=== PATIENT | male | born 1965 | race Caucasian/White ===

== ENCOUNTER 2018-08-07 13:25 | Outpatient (CLI) | payer BC ==
[2018-08-07 13:42] LABS: BILIRUBIN,URINE NEGATIVE (NEGATIVE); GLUCOSE, URINE (UA) NEGATIVE (NEGATIVE); KETONES,URINE (UA) NEGATIVE (NEGATIVE); LEUKOCYTE ESTERASE, URINE NEGATIVE (NEGATIVE); NITRITE,URINE NEGATIVE (NEGATIVE); OCCULT BLOOD,URINE NEGATIVE (NEGATIVE); PH,URINE 7.5 PH (5.0-7.5); PROTEIN,URINE NEGATIVE (NEGATIVE); UROBILINOGEN,URINE 0.2 (NORMAL) E.U./dL (NORMAL)
[2018-08-07 13:47] LABS: CLARITY,URINE CLEAR (CLEAR)
== END 2018-08-07 13:26 | disposition home or self-care (01) ==
LOC: LAB 13:25
PROVIDERS: ATTEND Urology
DX: R39.9 Unspecified symptoms and signs involving the genitourinary system (principal)
CPT/HCPCS: 81001; 81003; 87086

== ENCOUNTER 2020-04-09 06:01 | Emergency (ER) | payer BC ==
[2020-04-09 06:26] LABS: BILIRUBIN,URINE NEGATIVE (NEGATIVE); GLUCOSE, URINE (UA) NEGATIVE (NEGATIVE); KETONES,URINE (UA) NEGATIVE (NEGATIVE); LEUKOCYTE ESTERASE, URINE NEGATIVE (NEGATIVE); NITRITE,URINE NEGATIVE (NEGATIVE); OCCULT BLOOD,URINE MODERATE (NEGATIVE); PROTEIN,URINE NEGATIVE (NEGATIVE); UROBILINOGEN,URINE 0.2 (NORMAL) E.U./dL (NORMAL)
[2020-04-09 06:30] LABS: CLARITY,URINE CLEAR (CLEAR)
[2020-04-09] MEDS ORDERED: LACTATED RINGERS 1,000 ML IV STA (06:35)
[2020-04-09 06:45] LABS: BACTERIA,URINE None Seen /HPF (None Seen); RBC,URINE 0-5 /HPF (0-5); SQUAMOUS EPITHELIAL CELL,UR NONE SEEN (<= Few); WBC,URINE 0-3 /HPF (0-3)
[2020-04-09 06:49] LABS: ALBUMIN 3.9 g/dL (3.2-5.5); ALBUMIN/GLOBULIN RATIO 1.4 (1.0-2.2); BILIRUBIN,TOTAL 1.2 mg/dL (0.2-1.0); CALCIUM 9.2 mg/dL (8.5-10.3); CREATININE 1.3 mg/dL (0.6-1.2); POTASSIUM 4.1 mmol/L (3.5-5.0); TOTAL PROTEIN 6.6 g/dL (6.7-8.2)
[2020-04-09 06:56] LABS: BASOPHILS # (AUTO) 0.1 10^3/uL (0.0-0.1); BASOPHILS % (AUTO) 0.6 %; EOSINOPHILS # (AUTO) 0.1 10^3/uL (0.0-0.7); HCT - HEMATOCRIT 44.9 % (42.0-52.0); HGB - HEMOGLOBIN 15.1 g/dL (14.0-18.0); LYMPHOCYTES # (AUTO) 1.2 10^3/uL (1.5-3.5); LYMPHOCYTES % (AUTO) 15.3 %; MEAN CORPUSCULAR HEMOGLOBIN 31.3 pg (27.0-31.0); MEAN CORPUSCULAR HGB CONC 33.6 g/dL (32.0-36.0); MEAN PLATELET VOLUME 10.3 fL (7.4-11.4); MONOCYTES # (AUTO) 0.7 10^3/uL (0.0-1.0); MONOCYTES % (AUTO) 8.7 %; NEUTROPHILS # (AUTO) 5.9 10^3/uL (1.5-6.6); PLT - PLATELET COUNT 205 10^3/uL (130-450); RED BLOOD COUNT 4.83 10^6/uL (4.70-6.10); WHITE BLOOD COUNT 7.9 x10^3/uL (4.8-10.8)
[2020-04-09] MEDS ORDERED: MORPHINE 10 MG/ML VIAL IVP STA (07:02)
--- NOTE | 2020-04-09 07:06 | ED Physician Documentation ---
History of Present Illness - Stated complaint Stated Complaint: KIDNEY STONE - Chief complaint Chief Complaint: Abd Pain - History obtained from History obtained from: Patient - Additonal information Additional information: 54-year-old man with past medical history of active prostate cancer currently in treatment by urologist Dr. Darian Wynn, kidney stones status post lithotripsy in 2014 presents with left flank pain for the past couple days radiating to the left lower quadrant, intermittent sharp severe without associated symptoms. Denies fever, urinary symptoms, nausea or vomiting. Review of Systems Ten Systems: 10 systems reviewed and negative Constitutional: denies: Fever, Chills GI: reports: Abdominal Pain. denies: Nausea : denies: Dysuria Musculoskeletal: reports: Back pain PD PAST MEDICAL HISTORY - Past Medical History Past Medical History: Yes : Kidney stones, Other Derm: Other Other Past Medical History: Lipoma in mid back: Prostate CA - Past Surgical History Past Surgical History: Yes Derm: Other - Present Medications Home Medications: Ambulatory Orders Medication Instructions Recorded Confirmed No Known Home Medications 04/09/20 04/09/20 - Allergies Allergies/Adverse Reactions: Allergies Allergy/AdvReac Type Severity Reaction Status Date / Time No Known Drug Allergies Allergy Verified 04/09/20 06:08 - Social History Does the pt smoke?: No Smoking Status: Never smoker Does the pt drink ETOH?: Yes ETOH Use: Liquor Does the pt have substance abuse?: No - Immunizations Immunizations are current?: Yes - POLST Patient has POLST: No PD ED PE NORMAL - Vitals Vital signs reviewed: Yes - General General: Alert and oriented X 3, No acute distress, Well developed/nourished - HEENT HEENT: Atraumatic, PERRL, EOMI - Cardiac Cardiac: RRR - Respiratory Respiratory: No respiratory distress, Clear bilaterally - Abdomen Abdomen: Non tender, Non distended - Back Back: Other (L CVA ttp) - Derm Derm: Normal color - Extremities Extremities: No deformity - Neuro Neuro: Alert and oriented X 3 - Psych Psych: Normal mood, Normal affect Results - Vitals Vitals: Vital Signs - 24 hr 04/09/20 06:03 Temperature 36.5 C Heart Rate 71 Respiratory 16 Rate Blood Pressure 147/83 H O2 Saturation 98 Oxygen O2 Source Room air - Labs Labs: Laboratory Tests 04/09/20 04/09/20 04/09/20 06:24 06:27 06:27 WBC 7.9 RBC 4.83 Hgb 15.1 Hct 44.9 MCV 93.0 MCH 31.3 H MCHC 33.6 RDW 13.0 Plt Count 205 MPV 10.3 Neut # (Auto) 5.9 Lymph # (Auto) 1.2 L [place] # (Auto) 0.7 Eos # (Auto) 0.1 Baso # (Auto) 0.1 Absolute Nucleated RBC 0.00 Nucleated RBC % 0.0 Sodium 142 Potassium 4.1 Chloride 105 Carbon Dioxide 27 Anion Gap 10.0 BUN 13 Creatinine 1.3 H Estimated GFR (MDRD) 57 L Glucose 96 Calcium 9.2 Total Bilirubin 1.2 H AST 28 ALT 28 Alkaline Phosphatase 50 Total Protein 6.6 L Albumin 3.9 Globulin 2.7 Albumin/Globulin Ratio 1.4 Lipase 32 Urine Color YELLOW Urine Clarity CLEAR Urine pH 6.0 Ur Specific [place] 1.025 Urine Protein NEGATIVE Urine Glucose (UA) NEGATIVE Urine Ketones NEGATIVE Urine Occult Blood MODERATE H Urine Nitrite NEGATIVE Urine Bilirubin NEGATIVE Urine Urobilinogen 0.2 (NORMAL) Ur Leukocyte Esterase NEGATIVE Urine RBC 0-5 Urine WBC 0-3 Ur Squamous Epith Cells NONE SEEN Urine Bacteria None Seen Ur Microscopic Review INDICATED Urine Culture Comments NOT INDICATED PD MEDICAL DECISION MAKING - ED course ED course: 54-year-old man with history of prostate cancer and kidney stones presents with left flank pain radiating to the left lower quadrant. Will obtain CT to evaluate further. Patient endorsed to incoming daytime Dr. Dr. Tracey.
[2020-04-09] MEDS ORDERED: KETOROLAC 30 MG/ML VIAL IVP STA (07:13)
[2020-04-09] MEDS ORDERED: IOVERSOL 320 100 ML VIAL IVP ONE ×2 (07:28→13:19)
[2020-04-09 07:42] VITALS: BP 119/86
--- NOTE | 2020-04-09 08:14 | CT Report ---
PROCEDURE: Abdomen/Pelvis W INDICATIONS: L flank pain radiating to abdomen CONTRAST: IV CONTRAST: Optiray 320 ml: 100 PO CONTRAST: *NO PO CONTRAST TECHNIQUE: After the administration of intravenous contrast, 5 mm thick sections acquired from the diaphragms to the symphysis. 5 mm thick coronal and sagittal reformats were acquired. For radiation dose reducti on, the following was used: automated exposure control, adjustment of mA and/or kV according to brandie ent size. COMPARISON: None. FINDINGS: Image quality: Excellent. ABDOMEN: Lung bases: Lung bases demonstrate mild dependent atelectasis. Heart size is normal. Solid organs: Liver and spleen are normal in size and enhancement. Small hypointense structures wit hin the liver are nonspecific and may represent cysts. Gallbladder contains multiple gallstones. Colin iary system is non dilated. Pancreas enhances normally. No adrenal nodules. Kidneys demonstrate symmetric size and enhancement. There is mild left hydroureteronephrosis with pe rinephric and periureteral fat stranding. A 6 mm calculus is seen at the left ureterovesicular juncti on. No additional renal or ureteral calculus is identified. Peritoneum and bowel: Bowel loops demonstrate normal wall thickness and caliber. Normal appendix. N o free fluid or air. Nodes and vessels: No retroperitoneal or mesenteric adenopathy by size criteria. Aorta and inferior vena cava are normal in size. Miscellaneous: There is a tiny fat-containing periumbilical hernia. PELVIS: Genitourinary: Bladder wall thickness is normal. Miscellaneous: No inguinal hernias or adenopathy. Bones: No suspicious bony lesions. No vertebral body compression fractures. Mild degenerative britton ges are seen at the lumbosacral junction. IMPRESSION: 1. Left distal ureteral 6 mm calculus at the left ureterovesicular junction, with mild left hydroure teronephrosis and perinephric and periureteral fat stranding. 2. Cholelithiasis. Reviewed by: Anatoliy Carson MD on 04/09/2020 8:[address] [facility] Approved by: Anatoliy Carson MD on 04/09/2020 8:13 AM PST Station ID: [id number]
[2020-04-09] MEDS ORDERED: oxyCODONE 5 MG TABLET PO STA (08:19)
[2020-04-09] MEDS ORDERED: TAMSULOSIN 0.4 MG CAPSULE PO STA (08:19)
--- NOTE | 2020-04-09 08:22 | ED Physician Documentation ---
History of Present Illness - Stated complaint Stated Complaint: KIDNEY STONE - Chief complaint Chief Complaint: Abd Pain PD PAST MEDICAL HISTORY - Past Medical History Past Medical History: Yes : Kidney stones, Other Derm: Other Other Past Medical History: Lipoma in mid back: Prostate CA - Past Surgical History Past Surgical History: Yes Derm: Other - Present Medications Home Medications: Ambulatory Orders Medication Instructions Recorded Confirmed Ibuprofen [Motrin] 800 mg PO Q8H PRN #30 tablet 04/09/20 Ondansetron Odt [Zofran] 4 mg TL Q6H PRN #10 tablet 04/09/20 Oxycodone HCl/Acetaminophen 1 - 2 each PO Q6H PRN #14 tablet 04/09/20 [Percocet 5-325 mg Tablet] Tamsulosin [Flomax] 0.4 mg PO DAILY #14 cap 04/09/20 - Allergies Allergies/Adverse Reactions: Allergies Allergy/AdvReac Type Severity Reaction Status Date / Time No Known Drug Allergies Allergy Verified 04/09/20 06:08 - Social History Does the pt smoke?: No Smoking Status: Never smoker Does the pt drink ETOH?: Yes ETOH Use: Liquor Does the pt have substance abuse?: No - Immunizations Immunizations are current?: Yes - POLST Patient has POLST: No Results - Vitals Vitals: Vital Signs - 24 hr 04/09/20 04/09/20 06:03 07:41 Temperature 36.5 C Heart Rate 71 60 Respiratory 16 16 Rate Blood Pressure 147/83 H 119/86 H O2 Saturation 98 100 Oxygen O2 Source Room air - Labs Labs: Laboratory Tests 04/09/20 04/09/20 04/09/20 06:24 06:27 06:27 WBC 7.9 RBC 4.83 Hgb 15.1 Hct 44.9 MCV 93.0 MCH 31.3 H MCHC 33.6 RDW 13.0 Plt Count 205 MPV 10.3 Neut # (Auto) 5.9 Lymph # (Auto) 1.2 L [place] # (Auto) 0.7 Eos # (Auto) 0.1 Baso # (Auto) 0.1 Absolute Nucleated RBC 0.00 Nucleated RBC % 0.0 Sodium 142 Potassium 4.1 Chloride 105 Carbon Dioxide 27 Anion Gap 10.0 BUN 13 Creatinine 1.3 H Estimated GFR (MDRD) 57 L Glucose 96 Calcium 9.2 Total Bilirubin 1.2 H AST 28 ALT 28 Alkaline Phosphatase 50 Total Protein 6.6 L Albumin 3.9 Globulin 2.7 Albumin/Globulin Ratio 1.4 Lipase 32 Urine Color YELLOW Urine Clarity CLEAR Urine pH 6.0 Ur Specific [place] 1.025 Urine Protein NEGATIVE Urine Glucose (UA) NEGATIVE Urine Ketones NEGATIVE Urine Occult Blood MODERATE H Urine Nitrite NEGATIVE Urine Bilirubin NEGATIVE Urine Urobilinogen 0.2 (NORMAL) Ur Leukocyte Esterase NEGATIVE Urine RBC 0-5 Urine WBC 0-3 Ur Squamous Epith Cells NONE SEEN Urine Bacteria None Seen Ur Microscopic Review INDICATED Urine Culture Comments NOT INDICATED - Rads (name of study) CT abd/pelvis Radiology: Prelim report reviewed, EMP read contemporaneously, See rad report PD MEDICAL DECISION MAKING - ED course Complexity details: reviewed results, re-evaluated patient, considered differential, d/w patient ED course: Patient with a 6 mm stone at the left UVJ. Pain well controlled in the emergency department. No fevers. No evidence of infected stone. No vomiting. We will place on pain medication, Flomax for home. He will follow up with his urologist for further care. Patient counseled regarding signs and symptoms for which I believe and urgent re-evaluation would be necessary. Patient with good understanding of and agreement to plan and is comfortable going home at this time This document was made in part using voice recognition software. While efforts are made to proofread this document, sound alike and grammatical errors may occur. IMPRESSION: 1. Left distal ureteral 6 mm calculus at the left ureterovesicular junction, with mild left hydroureteronephrosis and perinephric and periureteral fat stranding. 2. Cholelithiasis. Departure - Departure Disposition: 01 Home, Self Care Clinical Impression: Ureteral calculus, left Condition: Good Instructions: ED Stone Renal W Colic Follow-Up: MIKE FLORES MD [Primary Care Provider] - Within 1 week Prescriptions: Tamsulosin [Flomax] 0.4 mg PO DAILY #14 cap Ibuprofen [Motrin] 800 mg PO Q8H PRN #30 tablet PRN Reason: PAIN &/OR FEVER Oxycodone HCl/Acetaminophen [Percocet 5-325 mg Tablet] 1 - 2 each PO Q6H PRN #14 tablet PRN Reason: pain Ondansetron Odt [Zofran] 4 mg TL Q6H PRN #10 tablet PRN Reason: Nausea / Vomiting Comments: Drink plenty of fluids. Return if you worsen. Follow-up with your doctor for further care. You do have a left-sided ureterovesicular junction stone, 6 mm. Return especially for uncontrolled pain, fevers, vomiting. Do not drink alcohol or drive while on narcotic pain medicine. Note that many narcotic pain relievers also contain tylenol/acetaminophen. Please ensure that your total dose of acetaminophen from all sources does not exceed 3 grams (3000mg) per day. You may constipated on this medication, take a stool softener such as "Colace" twice a day while you are on it. Also recommend a [id number] laxative such as senna or MiraLAX any day that you do not have a bowel movement. If you received narcotic pain medication in the emergency department, do not drive or operate machinery for the next [address] Scan results
== END 2020-04-09 08:43 | disposition home or self-care (01) ==
LOC: ED 06:01 → MERGE 06:01 → ED 08:43
DX: N13.2 Hydronephrosis with renal and ureteral calculous obstruction (principal); K80.20 Calculus of gallbladder without cholecystitis without obstruction; C61 Malignant neoplasm of prostate
CPT/HCPCS: 36415; 74177; 80053; 81001; 83690; 85025; 96361; 96374; 96375; 99284; A9270; J7120; Q9967; 81003; 87086

== ENCOUNTER 2021-03-03 14:32 | Outpatient (CLI) | payer BC ==
[2021-03-03 20:25] LABS: ALBUMIN/GLOBULIN RATIO 1.5 (1.0-2.2); ALKALINE PHOSPHATASE 56 IU/L (42-121); ALT ALANINE AMINOTRANSFERASE 29 IU/L (10-60); AST ASPARTATE AMINOTRANSFERASE 27 IU/L (10-42); BILIRUBIN,TOTAL 0.6 mg/dL (0.2-1.0); BUN - BLOOD UREA NITROGEN 13 mg/dL (6-20); CALCIUM 9.2 mg/dL (8.5-10.3); CARBON DIOXIDE - CO2 30 mmol/L (21-32); CHLORIDE 103 mmol/L (101-111); CHOLESTEROL 188 mg/dL; CREATININE 0.7 mg/dL (0.6-1.2); GFR - MDRD 116 (>89); GLUCOSE 108 mg/dL (70-100); HDL CHOLESTEROL 62 mg/dL; LDL CHOLESTEROL,CALCULATED 74 mg/dL; LDL/HDL RATIO 1.2 (<3.6); POTASSIUM 3.8 mmol/L (3.5-5.0); SODIUM 140 mmol/L (135-145); TOTAL PROTEIN 6.7 g/dL (6.7-8.2); TRIGLYCERIDES 260 mg/dL; VLDL CHOLESTEROL 52 mg/dL
== END 2021-03-03 14:33 | disposition home or self-care (01) ==
LOC: LAB.S 14:32
PROVIDERS: ATTEND Family Medicine Sports Medicine
DX: Z00.00 Encounter for general adult medical examination without abnormal findings (principal); C61 Malignant neoplasm of prostate
CPT/HCPCS: 36415; 80053; 80061; 83721; 84153

== ENCOUNTER 2022-04-25 12:39 | Outpatient (CLI) | payer BC | END 2022-04-25 12:40 | disposition home or self-care (01) | LOC: LAB.S 12:39 | PROVIDERS: ATTEND Nurse Practitioner Family | DX: M79.671 Pain in right foot (principal); R22.41 Localized swelling, mass and lump, right lower limb | CPT/HCPCS: 36415; 84550 ==

== ENCOUNTER 2022-05-02 14:37 | Outpatient (CLI) | payer BC | END 2022-05-02 14:38 | disposition home or self-care (01) | LOC: LAB.S 14:37 | PROVIDERS: ATTEND Podiatrist | DX: M25.571 Pain in right ankle and joints of right foot (principal); M25.572 Pain in left ankle and joints of left foot; M10.079 Idiopathic gout, unspecified ankle and foot | CPT/HCPCS: 36415; 81599; 85651; 86038; 86140; 86160; 86225; 86235 ==

== ENCOUNTER 2022-05-17 14:11 | Outpatient (CLI) | payer BC | END 2022-05-17 14:12 | disposition home or self-care (01) | LOC: LAB.S 14:11 | PROVIDERS: ATTEND Podiatrist | DX: M25.571 Pain in right ankle and joints of right foot (principal); M25.572 Pain in left ankle and joints of left foot; M10.071 Idiopathic gout, right ankle and foot | CPT/HCPCS: 36415; 81599; 83520; 84550; 86200; 86431 ==

== ENCOUNTER 2022-06-23 13:16 | Outpatient (CLI) | payer BC | END 2022-06-23 13:17 | disposition home or self-care (01) | LOC: LAB.S 13:16 | PROVIDERS: ATTEND Podiatrist | DX: M10.071 Idiopathic gout, right ankle and foot (principal) | CPT/HCPCS: 36415; 84550 ==

== ENCOUNTER 2022-11-08 07:35 | Outpatient (CLI) | payer BC ==
[2022-11-08 15:28] LABS: BASOPHILS # (AUTO) 0.1 10^3/uL (0.0-0.1); BASOPHILS % (AUTO) 1.3 %; EOSINOPHILS # (AUTO) 0.1 10^3/uL (0.0-0.7); EOSINOPHILS % (AUTO) 2.8 %; HCT - HEMATOCRIT 46.3 % (42.0-52.0); HGB - HEMOGLOBIN 15.7 g/dL (14.0-18.0); LYMPHOCYTES # (AUTO) 1.3 10^3/uL (1.5-3.5); LYMPHOCYTES % (AUTO) 27.7 %; MEAN CORPUSCULAR HEMOGLOBIN 31.5 pg (27.0-31.0); MEAN CORPUSCULAR HGB CONC 33.9 g/dL (32.0-36.0); MEAN CORPUSCULAR VOLUME 92.8 fL (80.0-94.0); MEAN PLATELET VOLUME 11.1 fL (7.4-11.4); MONOCYTES # (AUTO) 0.3 10^3/uL (0.0-1.0); MONOCYTES % (AUTO) 7.4 %; NEUTROPHILS # (AUTO) 2.8 10^3/uL (1.5-6.6); NEUTROPHILS % (AUTO) 60.4 %; PLT - PLATELET COUNT 201 10^3/uL (130-450); RED BLOOD COUNT 4.99 10^6/uL (4.70-6.10); RED CELL DISTRIBUTION WIDTH 13.5 % (12.0-15.0); WHITE BLOOD COUNT 4.6 x10^3/uL (4.8-10.8)
[2022-11-08 15:42] LABS: ALBUMIN 4.1 g/dL (3.2-5.5); ALBUMIN/GLOBULIN RATIO 1.7 (1.0-2.2); ALKALINE PHOSPHATASE 61 IU/L (42-121); ALT ALANINE AMINOTRANSFERASE 26 IU/L (10-60); AST ASPARTATE AMINOTRANSFERASE 28 IU/L (10-42); BILIRUBIN,TOTAL 0.9 mg/dL (0.2-1.0); BUN - BLOOD UREA NITROGEN 10 mg/dL (6-20); CALCIUM 9.5 mg/dL (8.5-10.3); CARBON DIOXIDE - CO2 31 mmol/L (21-32); CHLORIDE 104 mmol/L (101-111); CHOLESTEROL 197 mg/dL; CREATININE 0.9 mg/dL (0.6-1.3); GFR - MDRD 86 (>89); GLUCOSE 102 mg/dL (74-104); HDL CHOLESTEROL 99 mg/dL; LDL CHOLESTEROL,CALCULATED 56 mg/dL; LDL/HDL RATIO 0.6 (<3.6); POTASSIUM 4.7 mmol/L (3.5-4.5); SODIUM 140 mmol/L (135-145); TOTAL PROTEIN 6.5 g/dL (6.4-8.9); TRIGLYCERIDES 208 mg/dL (48-352); VLDL CHOLESTEROL 42 mg/dL
[2022-11-08 15:59] LABS: THYROID STIMULATING HORMONE 2.22 uIU/mL (0.34-5.60)
== END 2022-11-08 07:36 | disposition home or self-care (01) ==
LOC: LAB.S 07:35
PROVIDERS: ATTEND Registered Nurse
DX: C61 Malignant neoplasm of prostate (principal); Z87.442 Personal history of urinary calculi; Z13.228 Encounter for screening for other metabolic disorders; Z13.220 Encounter for screening for lipoid disorders; Z13.29 Encounter for screening for other suspected endocrine disorder; Z13.0 Encounter for screening for diseases of the blood and blood-forming organs and certain disorders involving the immune mechanism
CPT/HCPCS: 36415; 80053; 80061; 81001; 83721; 84153; 84443; 85025

== ENCOUNTER 2022-12-05 08:00 | Outpatient (CLI) | payer BC ==
[2022-12-05 20:07] LABS: BILIRUBIN,URINE NEGATIVE (NEGATIVE); GLUCOSE, URINE (UA) NEGATIVE (NEGATIVE); KETONES,URINE (UA) NEGATIVE (NEGATIVE); LEUKOCYTE ESTERASE, URINE NEGATIVE (NEGATIVE); NITRITE,URINE NEGATIVE (NEGATIVE); OCCULT BLOOD,URINE MODERATE (NEGATIVE); PROTEIN,URINE NEGATIVE (NEGATIVE); UROBILINOGEN,URINE 1 (NORMAL) E.U./dL (NORMAL)
[2022-12-05 21:42] LABS: CLARITY,URINE CLEAR (CLEAR); WBC,URINE 0-3 /HPF (0-3)
[2022-12-05 21:43] LABS: BACTERIA,URINE None Seen /HPF (None Seen); SQUAMOUS EPITHELIAL CELL,UR NONE SEEN (<= Few)
== END 2022-12-05 23:59 | disposition home or self-care (01) ==
LOC: LAB.F 08:00
PROVIDERS: ATTEND Physician Assistant Medical
DX: R30.0 Dysuria (principal); R31.9 Hematuria, unspecified
CPT/HCPCS: 81001; 87086